=== PATIENT | male | born 1955 | race Caucasian/White ===

== ENCOUNTER 2016-09-13 19:30 | Emergency (ER) | payer OTHER ==
[2016-09-13 20:09] VITALS: BP 144/74; PULSE 62; TEMP 98.2; BMI 32.3
--- NOTE | 2016-09-13 22:26 | PDOC ---
History of Present Illness - History of Present Illness Initial Comments: 09/13/16 22:32 The patient is a 60 year old male presenting with her daughter, with a significant past medical history of HTN, Diabetes and HLD, who presents to the emergency department with right thigh pain for the past 4 days. He reports that the pain ranges from mild to moderate, without radiation. He notes that flexing his foot exacerbates the pain. He notes that he took 800 mg Ibuprofen which helped relieve his symptoms. He denies any kind of trauma. 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 He denies any other kind of pain. The patient denies chest pain, shortness of breath, headache and dizziness. Allergies: None Past surgical history: None reported Social history: No alcohol, tobacco or drug use reported <Bibi Loving - Last Filed: 09/13/16 22:32> <Isidoro Guzman - Last Filed: 09/14/16 01:25> - General Chief Complaint: Pain Stated Complaint: RT LEG PAIN Time Seen by Provider: 09/13/16 21:44 Past History <Bibi Loving - Last Filed: 09/13/16 22:32> - Past Medical History Diabetes: Yes HTN: Yes Hypercholesterolemia: Yes - Immunization History Immunization Up to Date: Yes - Psycho/Social/Smoking Cessation Hx Anxiety: No Suicidal Ideation: No Smoking Status: Yes Smoking History: Never smoked Have you smoked in the past 12 months: No Number of Cigarettes Smoked Daily: 0 Information on smoking cessation initiated: No Hx Alcohol Use: No Drug/Substance Use Hx: No Substance Use Type: None Hx Substance Use Treatment: No <Isidoro Guzman - Last Filed: 09/14/16 01:25> - Past Medical History Allergies/Adverse Reactions: Allergies Allergy/AdvReac Type Severity Reaction Status Date / Time No Known Allergies Allergy Verified 09/13/16 20:09 Home Medications: Ambulatory Orders Aspirin 81 mg PO DAILY #1 07/15/13 Atorvastatin Ca [Lipitor] 20 mg PO HS #1 07/15/13 Benzonatate [Tessalon] 200 mg PO TID #1 07/15/13 Lisinopril [Prinivil] 10 mg PO DAILY #1 07/15/13 Metformin HCl [Glucophage -] 500 mg PO BIDWM #60 tablet 07/15/13 Sitagliptin Phosphate [Januvia -] 100 mg PO DAILY@0700 #30 tab 07/15/13 Naproxen [Naprosyn] 500 mg PO BID PRN #20 tablet 10/01/13 Review of Systems - Review of Systems Comments:: 09/13/16 22:32 CONSTITUTIONAL: No fever, no chills, no fatigue EYES: No visual changes ENT: No ear pain, no sore throat CARDIOVASCULAR: No chest pain, no palpitations RESPIRATORY: No cough, no SOB GI: No abdominal pain, no nausea, no vomiting, no constipation, no diarrhea GENITOURINARY: No dysuria, no frequency, no hematuria MUSKULOSKELETAL: Right thigh pain. No backpain, no joint pain SKIN: No rash NEURO: No headache <Bibi Loving - Last Filed: 09/13/16 22:32> *Physical Exam - Vital Signs Last Vital Signs Temp Pulse Resp BP Pulse Ox 98.2 F 62 18 144/74 98 09/13/16 20:07 09/13/16 20:07 09/13/16 20:07 09/13/16 20:07 09/13/16 20:07 <Bibi Loving - Last Filed: 09/13/16 22:32> - Vital Signs Last Vital Signs Temp Pulse Resp BP Pulse Ox 98.2 F 62 18 144/74 98 09/13/16 20:07 09/13/16 20:07 09/13/16 20:07 09/13/16 20:07 09/13/16 20:07 - Physical Exam Comments: 09/13/16 22:22 EXAMINATION CONSTITUTIONAL: Well-appearing; well-nourished; in no apparent distress HEAD: Normocephalic; atraumatic EYES: PERRL; EOM intact ENMT: External appears normal; normal oropharynx NECK: Supple; non-tender; no cervical lymphadenopathy CARD: Normal S1, S2; no murmurs, rubs, or gallops RESP: Normal chest excursion with respiration; breath sounds clear and equal bilaterally; no wheezes, rhonchi, or rales ABD: Soft, non-distended; non-tender; no palpable organomegaly, no palpable hernias EXT: Normal ROM in all four extremities; non-tender to palpation; distal pulses intact; + pain to the mid quadricep on active flexion/extension of the knee joint; anterior/posterior drawers are negative; there is no laxity with valgus/ Dennison; Rhiannon's is negative; no pain with external/internal rotation of the femur at the hip joint; SKIN: Warm, dry, no rash NEURO: No focal neurological deficiencies. <Isidoro Guzman - Last Filed: 09/14/16 01:25> Medical Decision Making - Medical Decision Making 09/14/16 01:24 Patient is 60-year-old male who presents with intermittent right quadricep pain (not in the ER) which is reproduced by active extension/flexion of the knee joint against resistance. There is no evidence of hernias. Knee joint is stable without evidence of laxity. I suspect a quadricep injury. We'll advise continuous NSAID therapy with outpatient follow-up. <Isidoro Guzman - Last Filed: 09/14/16 01:25> *DC/Admit/Observation/Transfer - Attestations Scribe Attestion: 09/13/16 22:33 Documentation prepared by Bibi Loving, acting as medical delivery technician for Isidoro Guzman MD. <Bibi Loving - Last Filed: 09/13/16 22:32> <Isidoro Guzman - Last Filed: 09/14/16 01:25> Diagnosis at time of Disposition: Leg pain, right - Discharge Dispostion Disposition: HOME Condition at time of disposition: Stable - Referrals Referrals: Dennis Moya [Primary Care Provider] - - Patient Instructions Printed Discharge Instructions: DI for Leg Pain
== END 2016-09-13 22:40 | disposition home or self-care (01) ==
LOC: JER 19:30 → JERFT 19:30 → SUPCPDRO 19:30 → JER 22:40
DX: M79.604 Pain in right leg (principal); I10 Essential (primary) hypertension; E11.9 Type 2 diabetes mellitus without complications; E78.5 Hyperlipidemia, unspecified; Z79.82 Long term (current) use of aspirin
CPT/HCPCS: 99281-25

== ENCOUNTER 2019-06-22 16:32 | Emergency (ER) | payer OTHER ==
[2019-06-22 16:36] VITALS: BP 176/77; PULSE 64; TEMP 97.9; BMI 31.5
[2019-06-22] MEDS ORDERED: KETOROLAC TROMETHAMINE 30 MG/1 ML VIAL IM ONE (17:14)
[2019-06-22] MEDS ORDERED: KETOROLAC TROMETHAMINE 30 MG/1 ML VIAL ONE (17:17)
--- NOTE | 2019-06-22 17:19 | PDOC ---
History of Present Illness - General Chief Complaint: Pain Stated Complaint: HIP PAIN Time Seen by Provider: 06/22/19 16:56 History Source: Patient Exam Limitations: No Limitations - History of Present Illness Initial Comments: 06/22/19 17:14 CHIEF COMPLAINT: Atraumatic lower back pain HISTORY OF PRESENT ILLNESS: 63-year-old man, with 6/10 lower back pain radiating to bilateral lower extremities. Patient reports his pain is a sharp stabbing sensation. No neurosensory deficits, no bowel or bladder difficulty incontinence or urinary retention, no saddle anesthesia, no footdrop. No history of IVDU or hisotry of cancer. REVIEW OF SYSTEMS: GENERAL: Afebrile, denies any weakness RESPIRATORY: No cough, wheezing, or hemoptysis. CARDIAC: No chest pain or shortness of breath MUSCULOSKELETAL: Pain to generalized lower back. No point tenderness. Pain worse on right than left. SKIN : No erythema, no bruising, no deformity. GI/: Denies any abdominal pain, no urinary difficulty, incontinence or urinary retention. RECTAL: Denies any difficulty this A.m. NEUROLOGICAL: Denies any numbness or tingling. No neurosensory deficits. PHYSICAL EXAM: GENERAL: The patient is awake, alert, and fully oriented, in no acute distress. RESPIRATORY: Lungs clear bilaterally, no rhonchi wheezes or crackles CARDIAC: S1-S2 audible, no murmur rub or gallop MUSCULOSKELETAL: Pain to generalized lower back, nonradiating, no tingling or sensory deficit. Less than 2 second cap refill, +2 pedal pulses. No spinal point tenderness. Normal reflexive and no deficits to sensation or strength. Able to perform straight leg raises without difficulty. Palpable muscle spasm present in the right lumbar paraspinous muscles. GI/: Abdomen soft, nontender, nondistended. No rebound tenderness. No masses palpable. RECTAL: Deferred patient with no neurological findings SKIN: Warm, Dry, normal turgor, no erythema, no edema no bruising. Past History - Past Medical History Allergies/Adverse Reactions: Allergies Allergy/AdvReac Type Severity Reaction Status Date / Time No Known Allergies Allergy Verified 06/22/19 16:36 Home Medications: Ambulatory Orders Acetaminophen [Acetaminophen ER] 650 mg PO BID 06/22/19 Amox-Tr/K Cl [Augmentin - 875Mg Tablet] 1 tab PO BID 06/22/19 Diazepam [Valium] 5 mg PO ONCE PRN #1 tablet MDD 1 06/22/19 Losartan/Hydrochlorothiazide [Losartan-Hctz 50-12.5 mg Tab] 1 each PO DAILY Methocarbamol [Robaxin -] 1,500 mg PO Q8H PRN #30 tablet 06/22/19 Sitagliptin Phosphate [Januvia -] 100 mg PO DAILY@0700 06/22/19 metFORMIN HCL [Glucophage -] 500 mg PO BID 06/22/19 COPD: No Diabetes: Yes HTN: Yes Hypercholesterolemia: Yes - Immunization History Immunization Up to Date: Yes - Psycho Social/Smoking Cessation Hx Smoking Status: Yes Smoking History: Never smoked Have you smoked in the past 12 months: No Number of Cigarettes Smoked Daily: 0 Hx Alcohol Use: No Drug/Substance Use Hx: No Substance Use Type: None Hx Substance Use Treatment: No Trauma Specific PMHX - Complaint Specific PMHX Arthritis: No *Physical Exam - Vital Signs Last Vital Signs Temp Pulse Resp BP Pulse Ox 97.9 F 64 18 176/77 H 99 06/22/19 16:34 06/22/19 16:34 06/22/19 16:34 06/22/19 16:34 06/22/19 16:34 Medical Decision Making - Medical Decision Making 06/22/19 17:16 A/P: 63-year-old male with muscle spasms in the right paraspinous lumbar region. Toradol 30 mg IM now Patient reports he is driving home today and I will give a prescription for Valium 1 dose to be taken at home as well as prescription for Robaxin to be taken for ongoing pain. Patient has been encouraged to follow-up with his primary doctor for continued evaluation if symptoms do not resolve within the next 7 days. Discharge - Discharge Information Problems reviewed: Yes Clinical Impression/Diagnosis: Spasm of muscle of lower back Condition: Stable Disposition: HOME - Admission No - Additional Discharge Information Prescriptions: Diazepam [Valium] 5 mg PO ONCE PRN #1 tablet MDD 1 PRN Reason: Back Pain Methocarbamol [Robaxin -] 1,500 mg PO Q8H PRN #30 tablet PRN Reason: Back Pain - Follow up/Referral - Patient Discharge Instructions Additional Instructions: Rest, no heavy lifting or exercise until pain is resolved Hot soaks to neck and low back as often as possible/hot showers or Jacuzzis No massage or therapy until spasm is gone Continue naproxen 2-220 mg tablets every 12 hours for the next 3 days then as needed for pain and swelling Robaxin 1500mg every 8 hours as needed for spasm If not significant improvement within 24 hours with medication and rest regime, followup with private physician for change in medications and /or therapy. - Post Discharge Activity Work/Back to School Note: Back to Work
== END 2019-06-22 17:53 | disposition home or self-care (01) ==
LOC: JERFT 16:32
PROC: 3E0233Z Introduction of Anti-inflammatory into Muscle, Percutaneous Approach (ICD-10-PCS; principal; 2019-06-22)
DX: M62.830 Muscle spasm of back (principal); I10 Essential (primary) hypertension; E78.00 Pure hypercholesterolemia, unspecified; E11.9 Type 2 diabetes mellitus without complications; Z79.84 Long term (current) use of oral hypoglycemic drugs
CPT/HCPCS: 96372; 99281-25

== ENCOUNTER 2019-06-26 19:27 | Emergency (ER) | payer OTHER ==
[2019-06-26] MEDS ORDERED: LIDOCAINE 5% TOPICAL PATCH TP ONE (20:36)
[2019-06-26] MEDS ORDERED: KETOROLAC TROMETHAMINE 30 MG/1 ML VIAL IM ONE (20:37)
[2019-06-26] MEDS ORDERED: ACETAMINOPHEN 325 MG TABLET (FP) PO ONE (20:37)
--- NOTE | 2019-06-26 20:37 | PDOC ---
History of Present Illness - General Chief Complaint: Pain, Acute Stated Complaint: LEG PAIN Time Seen by Provider: 06/26/19 19:47 History Source: Patient, Family ( and other family members present at bedside.), Old Records, Pt declined Specialist Managers (Pt used a family member for Persian Interpretation) Exam Limitations: Language Barrier - History of Present Illness Initial Comments: HPI: 63 y/o male presenting to [facility] ER complaining of pain to his left leg that started after waking from a nap this afternoon. Pain radiates throughout the posterior aspect of the leg and into his lower back. Pt works as a route sales delivery driver, and reportedly drive for approx. 6 hours prior to the start of this pain. Denies trauma to the area, fevers, chills, rash, or point tenderness in the leg. Denies saddle anesthesia, urinary retention, or fecal incontinence. Tried OTC Tylenol this afternoon without resolution of the symptoms. Of note, the pt was seen in this department on 22 Jun 2019 for similar symptoms. Was prescribed Robaxin. Medical Hx: - HTN - HLD - Diabetes Review of Systems: In addition to that documented in the HPI above, the additional ROS was obtained : Constitutional- Denies fevers or chills ENMT- Denies sore throat CV- Denies chest pain Resp- Denies SOB GI- Denies abdominal pain, vomiting or diarrhea Neuro- Per HPI Physical Examination: Vital signs and nursing notes reviewed. Constitutional- Well-developed, well-nourished adult male in no acute distress but obvious discomfort. Found semi-fowlers on hospital bed. Head- Normocephalic. No obvious external signs of trauma. Cardiovascular / Chest- Regular rate and regular rhythm. No murmur, rubs, clicks , or gallops. Peripheral pulses- radial pulses full. Left DPL 2+. Respiratory- Breathing unlabored. Equal chest rise and fall. Clear to auscultation bilaterally. No stridor, no wheezing, no rhonchi. Gastrointestinal- abdomen is soft, non-tender, non-distended. Neuro- Alert and oriented x4. Moving all four extremities spontaneously. Sensation intact and symmetrical to both lower extremities. No saddle anesthesia. Lower extremities: proximal and distal strength 5/5. Plantar flexion and dorsiflexion 5/5. Intact rectal tone present on digital exam. MSK/ Skin- Diffuse tenderness to posterior aspect of left lower leg, which is made worse with a straight leg raise. No point tenderness, redness, or other localized skin lesions. Left lower extremity is warm and well perfused. Diffuse tenderness to bilateral aspects of lower back. No midline tenderness. No step off or other obvious bony deformity. Psych- Affect- appropriate. Mood- normal. Speech was non-labored, non- pressured. MDM: 63 y/o male presenting with acute exacerbation of chronic lower back pain w/ radiation to posterior aspect of left leg. Afebrile. Vitals unremarkable for hypotension or tachycardia. Physical exam as described above. Low suspicion for Cauda Equina versus epidural abscess. Suspect MSK pain vs strain with sciatica. Likely secondary to occupation. Will trial Toradol, Tylenol, and Lidoderm patch. 26 Jun 2019 22:04 PM Pt reassessed. Found standing up beside the hospital bed. States his pain has resolved and he would like to go home. Discussed physical exam findings with pt. Answered all questions. Provided return precautions. pt expressed verbal understanding and agreement with plan to discharge home with outpatient follow up. Encouraged pt to try over the counter Lidoderm patches and discuss prescription with his primary care doctor. Tima Granados M.D., PGY2 Emergency Medicine Resident Past History - Past Medical History Allergies/Adverse Reactions: Allergies Allergy/AdvReac Type Severity Reaction Status Date / Time No Known Allergies Allergy Verified 06/22/19 16:36 Home Medications: Ambulatory Orders Acetaminophen [Acetaminophen ER] 650 mg PO BID 06/22/19 Amox-Tr/K Cl [Augmentin - 875Mg Tablet] 1 tab PO BID 06/22/19 Diazepam [Valium] 5 mg PO ONCE PRN #1 tablet MDD 1 06/22/19 Losartan/Hydrochlorothiazide [Losartan-Hctz 50-12.5 mg Tab] 1 each PO DAILY Methocarbamol [Robaxin -] 1,500 mg PO Q8H PRN #30 tablet 06/22/19 Sitagliptin Phosphate [Januvia -] 100 mg PO DAILY@0700 06/22/19 metFORMIN HCL [Glucophage -] 500 mg PO BID 06/22/19 COPD: No Diabetes: Yes HTN: Yes Hypercholesterolemia: Yes - Immunization History Immunization Up to Date: Yes - Psycho Social/Smoking Cessation Hx Smoking Status: Yes Smoking History: Never smoked Have you smoked in the past 12 months: No Number of Cigarettes Smoked Daily: 0 Hx Alcohol Use: No Drug/Substance Use Hx: No Substance Use Type: None Hx Substance Use Treatment: No Discharge - Discharge Information Problems reviewed: Yes Clinical Impression/Diagnosis: Lower back pain Qualifiers: Chronicity: acute Back pain laterality: bilateral Sciatica presence: with sciatica Sciatica laterality: sciatica of left side Qualified Code(s): M54.42 - Lumbago with sciatica, left side Condition: Improved Disposition: HOME - Admission No - Follow up/Referral Referrals: Dennis Moya [Primary Care Provider] - - Patient Discharge Instructions Patient Printed Discharge Instructions: DI for Back Pain With Sciatica Additional Instructions: Hoy lo vieron por un dolor en la parte baja de la espalda que se movi hacia la pierna izquierda. Probablemente se trata de algo llamado dolor del nervio citico. Puede ser causado por estar sentado en garcia taxi naheed largas horas. Puede marcin el contador Tylenol o Advil segn sea necesario para el dolor. Tmelo jesika se indica en el prospecto. No exceda la dosis recomendada. Cliff un seguimiento con garcia mdico de atencin primaria en los prximos 3-4 lopez. Deber llamar para hacer geovanni tashi. Dirjase al departamento de emergencias ms cercano si garcia afeccin empeora o siente que necesita geovanni evaluacin de emergencia adicional. Est atento al empeoramiento del dolor de espalda en la lnea media, problemas para orinar, problemas para controlar jayna evacuaciones intestinales o fiebre. Estos pueden ser signos de geovanni infeccin ms grave. You were seen today for lower back pain that moved into your left leg. This was likely something called Sciatic nerve pain. 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 You can take over the counter Tylenol or Advil as needed for pain. Take as directed on the package insert. Do not exceed the recommended dosage. Follow up with your primary care doctor in the next 3-4 days. You will need to call to make an appointment. Go to the nearest emergency department if your condition worsens or you feel like you need additional emergency evaluation. Watch for worsening midline back pain, trouble peeing, trouble controlling your bowel movements, or fever. These may be signs of a more serious infection. Print Language: KAZAKH - Post Discharge Activity
[2019-06-26 20:46] VITALS: BP 166/84; PULSE 88; TEMP 98.4; BMI 31.6
--- NOTE | 2019-06-26 21:09 | PDOC ---
Attending Attestation - Resident Resident Name: Tima Granados - ED Attending Attestation I have performed the following: I have examined & evaluated the patient, The case was reviewed & discussed with the resident, I agree w/resident's findings & plan, Exceptions are as noted - HPI HPI: 06/26/19 22:19 See resident HPI - Physicial Exam PE: 06/26/19 22:19 Agree with resident exam - Medical Decision Making 06/26/19 22:19 P/w with likely sciatica pain, imaging not indicated analgesia, re-eval symptomatically improved dc home
[2019-06-26] MEDS ORDERED: LIDOCAINE PATCH REMOVAL MC SCH (22:00)
== END 2019-06-26 22:25 | disposition home or self-care (01) ==
LOC: JER 19:27
PROC: 3E0233Z Introduction of Anti-inflammatory into Muscle, Percutaneous Approach (ICD-10-PCS; principal; 2019-06-26)
DX: M54.42 Lumbago with sciatica, left side (principal); I10 Essential (primary) hypertension; E78.00 Pure hypercholesterolemia, unspecified; E11.9 Type 2 diabetes mellitus without complications; Z79.84 Long term (current) use of oral hypoglycemic drugs
CPT/HCPCS: 99282-25

== ENCOUNTER 2022-10-16 09:47 | Observation (INO) | payer MEDICARE, OTHER ==
[2022-10-16 10:01] VITALS: BMI 31.8
[2022-10-16] MEDS ORDERED: dilTIAZem HCL 50 MG/10 ML - 10 ML VIAL IVPUSH ONE (10:28)
[2022-10-16] MEDS ORDERED: dilTIAZem HCL 125 MG/25 ML - 25 ML VIAL ONE (10:36)
[2022-10-16 11:03] LABS: BASO % 1.1 % (0-2.0); EOS % 0.3 % (0-4.5); HEMATOCRIT 39.2 % (35.4-49); HEMOGLOBIN 12.9 GM/dL (11.7-16.9); LYMPH % 20.4 % (8-40); MCH 25.5 pg (25.7-33.7); MCHC 32.9 g/dl (32.0-35.9); MEAN CELL VOLUME 77.5 fl (80-96); MEAN PLT VOLUME 10.5 fl (7.5-11.1); MONO % 7.6 % (3.8-10.2); NEUT % 70.6 % (42.8-82.8); PLATELET COUNT 213 10^3/uL (134-434); RBC 5.05 M/mm3 (4.00-5.60); RDW 18.2 % (11.9-15.9); WHITE BLOOD COUNT 10.6 K/mm3 (4.0-10.0)
[2022-10-16 11:11] LABS: INR 2.08 (0.83-1.09); PROTHROMBIN TIME (PATIENT) 23.9 SEC (9.7-13.0)
[2022-10-16 11:18] LABS: POTASSIUM 4.2 mmol/L (3.5-5.1)
[2022-10-16 11:20] LABS: CALCIUM 9.3 mg/dL (8.5-10.1)
[2022-10-16 11:21] LABS: ALBUMIN 3.7 g/dl (3.4-5.0)
[2022-10-16 11:25] LABS: BILIRUBIN,TOTAL 1.8 mg/dL (0.2-1); CREATININE 1.3 mg/dL (0.55-1.3); TOT PROT 7.5 g/dl (6.4-8.2)
[2022-10-16] MEDS ORDERED: diazePAM 5 MG TABLET PO PRN (14:46)
[2022-10-16] MEDS ORDERED: ACETAMINOPHEN 325 MG TABLET (FP) PO PRN (14:46)
[2022-10-16] MEDS: INSULIN SLIDING SCALE (NOVOLOG) 1 VIAL SQ SCH ×2 (18:47→21:37)
[2022-10-16] MEDS ORDERED: FUROSEMIDE 40 MG/4 ML INJECTABLE VIAL IVPUSH SCH (20:30)
[2022-10-16] MEDS: FUROSEMIDE 40 MG/4 ML INJECTABLE VIAL IVPUSH SCH (21:46)
[2022-10-17] MEDS: INSULIN SLIDING SCALE (NOVOLOG) 1 VIAL SQ SCH ×4 (06:02→21:21)
[2022-10-17] MEDS: FUROSEMIDE 40 MG/4 ML INJECTABLE VIAL IVPUSH SCH (09:20)
[2022-10-17] MEDS: APIXABAN 5 MG TABLET PO SCH ×2 (09:20→21:18)
[2022-10-17] MEDS: METOPROLOL TARTRATE 25 MG TABLET (FP) PO SCH ×2 (09:20→21:18)
[2022-10-17] MEDS ORDERED: LOSARTAN 50MG/HCTZ 12.5MG 1 TAB PO SCH (10:00)
[2022-10-17 11:43] LABS: INR 2.25 (0.83-1.09); PROTHROMBIN TIME (PATIENT) 25.9 SEC (9.7-13.0)
[2022-10-17 11:54] LABS: BASO % 1.1 % (0-2.0); EOS % 1.2 % (0-4.5); HEMATOCRIT 39.2 % (35.4-49); HEMOGLOBIN 13.1 GM/dL (11.7-16.9); LYMPH % 19.5 % (8-40); MCH 25.8 pg (25.7-33.7); MCHC 33.3 g/dl (32.0-35.9); MEAN CELL VOLUME 77.6 fl (80-96); MEAN PLT VOLUME 9.7 fl (7.5-11.1); MONO % 8.2 % (3.8-10.2); PLATELET COUNT 223 10^3/uL (134-434); RBC 5.05 M/mm3 (4.00-5.60); RDW 18.4 % (11.9-15.9); WHITE BLOOD COUNT 9.8 K/mm3 (4.0-10.0)
[2022-10-17 11:58] LABS: POTASSIUM 3.8 mmol/L (3.5-5.1)
[2022-10-17 12:01] LABS: CALCIUM 9.2 mg/dL (8.5-10.1)
[2022-10-17 12:02] LABS: ALBUMIN 3.6 g/dl (3.4-5.0); BLOOD UREA NITROGEN 25.7 mg/dL (7-18)
[2022-10-17 12:05] LABS: CREATININE 1.2 mg/dL (0.55-1.3)
[2022-10-17 12:06] LABS: BILIRUBIN,TOTAL 1.7 mg/dL (0.2-1); TOT PROT 7.7 g/dl (6.4-8.2)
[2022-10-18] MEDS: INSULIN SLIDING SCALE (NOVOLOG) 1 VIAL SQ SCH ×4 (06:11→22:49)
[2022-10-18] MEDS: APIXABAN 5 MG TABLET PO SCH ×2 (12:52→22:48)
[2022-10-18] MEDS: FUROSEMIDE 40 MG/4 ML INJECTABLE VIAL IVPUSH SCH (12:52)
[2022-10-18] MEDS: METOPROLOL TARTRATE 50 MG TABLET (FP) PO SCH ×2 (12:52→22:48)
[2022-10-19] MEDS: INSULIN SLIDING SCALE (NOVOLOG) 1 VIAL SQ SCH ×2 (06:26→11:30)
[2022-10-19 08:08] LABS: POTASSIUM 3.9 mmol/L (3.5-5.1)
[2022-10-19 08:25] LABS: BLOOD UREA NITROGEN 22.9 mg/dL (7-18); CALCIUM 8.7 mg/dL (8.5-10.1)
[2022-10-19 08:28] LABS: CREATININE 0.9 mg/dL (0.55-1.3)
[2022-10-19 08:30] LABS: TOT PROT 6.6 g/dl (6.4-8.2)
[2022-10-19] MEDS ORDERED: DIGOXIN 0.25 MG TABLET PO ONE (08:46)
[2022-10-19] MEDS ORDERED: REGADENOSON 0.4 MG/5 ML PRE-FILLED SYRINGE IVPUSH ONE ×2 (09:28→09:45)
[2022-10-19] MEDS: METOPROLOL TARTRATE 50 MG TABLET (FP) PO SCH (13:18)
[2022-10-19] MEDS: APIXABAN 5 MG TABLET PO SCH (13:18)
[2022-10-19 16:02] VITALS: BP 128/70; PULSE 117; RESP 20; TEMP 98.1
[2022-10-20] MEDS ORDERED: DIGOXIN 0.125 MG TABLET PO SCH (10:00)
== END 2022-10-19 18:12 | disposition home or self-care (01) ==
LOC: JER 09:47 → JERBED 13:47 → INTOOBSV 13:47 → UNDOADMOB 13:47 → JERBED 18:21 → J4W 18:21 → JERBED 10-18 15:00
PROVIDERS: ADMIT Family Medicine; ATTEND Family Medicine
PROC: 3E033GC Introduction of Other Therapeutic Substance into Peripheral Vein, Percutaneous Approach (ICD-10-PCS; principal; 2022-10-18)
DX: I25.10 Atherosclerotic heart disease of native coronary artery without angina pectoris (principal); I11.0 Hypertensive heart disease with heart failure; E11.9 Type 2 diabetes mellitus without complications; E78.5 Hyperlipidemia, unspecified; E66.8 Other obesity; I48.91 Unspecified atrial fibrillation; Z68.30 Body mass index [BMI] 30.0-30.9, adult; R05.9 Cough, unspecified; R06.02 Shortness of breath; Z87.891 Personal history of nicotine dependence; R79.89 Other specified abnormal findings of blood chemistry; R77.8 Other specified abnormalities of plasma proteins
CPT/HCPCS: 36415; 71045-TC-FY; 76705-TC; 78452-TC; 80053; 80061; 82248; 82550; 82728; 82962; 83036; 83540; 83550; 83880; 84443; 84484; 85025; 85610; 86704; 86708; 86709; 86803; 86850; 86900; 86901; 87340; 87517; 93005; 93010; 93017; 93306-TC; 96374; 96375; 99291; A9502; C9803-CS; G0378; J2785; U0003; U0005

== ENCOUNTER 2023-07-16 14:18 | Inpatient (IN) | payer MEDICARE, OTHER ==
[2023-07-16 15:52] LABS: MCH 22.2 pg (25.7-33.7); MCHC 30.7 g/dl (32.0-35.9); MEAN CELL VOLUME 72.5 fl (80-96); MEAN PLT VOLUME 8.7 fl (7.5-11.1); PLATELET COUNT 290 10^3/uL (134-434); RBC 2.48 M/mm3 (4.00-5.60); RDW 18.1 % (11.9-15.9)
[2023-07-16 15:54] LABS: HEMOGLOBIN 5.5 GM/dL (11.7-16.9)
[2023-07-16] MEDS ORDERED: PANTOPRAZOLE SODIUM 40 MG VIAL IVPUSH ONE (15:56)
[2023-07-16] MEDS ORDERED: PANTOPRAZOLE SODIUM 40 MG VIAL ONE (16:06)
[2023-07-16 16:08] LABS: INR 3.38 (0.83-1.09); PROTHROMBIN TIME (PATIENT) 38.7 SEC (9.7-13.0)
[2023-07-16 16:11] LABS: CALCIUM 8.8 mg/dL (8.5-10.1)
[2023-07-16 16:12] LABS: ALBUMIN 3.4 g/dl (3.4-5.0); BLOOD UREA NITROGEN 22.4 mg/dL (7-18)
[2023-07-16 16:15] LABS: CREATININE 1.6 mg/dL (0.55-1.3); PHOSPHOROUS 3.7 mg/dL (2.5-4.9)
[2023-07-16 16:16] LABS: BILIRUBIN,TOTAL 0.4 mg/dL (0.2-1); TOT PROT 7.1 g/dl (6.4-8.2)
[2023-07-16 20:03] LABS: N-TERMINAL BNP 3277.4 pg/ml (5-125)
[2023-07-16] MEDS ORDERED: ACETAMINOPHEN 1000 MG/100 ML BAG IVPB PRN (21:55)
[2023-07-16] MEDS ORDERED: METOPROLOL TARTRATE 5 MG/5 ML VIAL IVPUSH ONE (22:33)
[2023-07-16] MEDS ORDERED: METOPROLOL TARTRATE 5 MG/5 ML VIAL ONE (22:33)
[2023-07-17] MEDS ORDERED: METOPROLOL TARTRATE 50 MG TABLET (FP) ONE (01:52)
[2023-07-17] MEDS ORDERED: METOPROLOL TARTRATE 50 MG TABLET (FP) PO ONE (01:58)
[2023-07-17 04:20] VITALS: BMI 32.5
[2023-07-17 07:51] LABS: BASO % 0.4 % (0-2.0); EOS % 0.3 % (0-4.5); HEMATOCRIT 24.5 % (35.4-49); HEMOGLOBIN 7.8 GM/dL (11.7-16.9); LYMPH % 11.3 % (8-40); MCHC 31.9 g/dl (32.0-35.9); MEAN CELL VOLUME 75.2 fl (80-96); MEAN PLT VOLUME 9.4 fl (7.5-11.1); MONO % 5.4 % (3.8-10.2); NEUT % 82.6 % (42.8-82.8); PLATELET COUNT 232 10^3/uL (134-434); RBC 3.25 M/mm3 (4.00-5.60); RDW 18.2 % (11.9-15.9); WHITE BLOOD COUNT 11.9 K/mm3 (4.0-10.0)
[2023-07-17 08:10] LABS: POTASSIUM 4.4 mmol/L (3.5-5.1)
[2023-07-17 08:30] LABS: BLOOD UREA NITROGEN 21.1 mg/dL (7-18)
[2023-07-17 08:34] LABS: CREATININE 1.5 mg/dL (0.55-1.3)
[2023-07-17] MEDS ORDERED: DEXTROSE 5%-0.45% SALINE 1,000 ML IV SCH (09:15)
[2023-07-17] MEDS: DIGOXIN 0.125 MG TABLET PO SCH ×2 (10:06→11:21)
[2023-07-17] MEDS: PANTOPRAZOLE SODIUM 40 MG VIAL IVPUSH SCH ×2 (10:06→21:51)
[2023-07-17] MEDS: INSULIN ASPART SLIDING SCALE (NOVOLOG) 1 VIAL SQ SCH ×3 (13:43→21:54)
[2023-07-17 13:56] LABS: BASO % 0.6 % (0-2.0); EOS % 0.4 % (0-4.5); HEMATOCRIT 22.5 % (35.4-49); HEMOGLOBIN 7.4 GM/dL (11.7-16.9); LYMPH % 14.7 % (8-40); MCH 24.6 pg (25.7-33.7); MEAN CELL VOLUME 74.7 fl (80-96); MEAN PLT VOLUME 9.5 fl (7.5-11.1); MONO % 7.7 % (3.8-10.2); NEUT % 76.6 % (42.8-82.8); PLATELET COUNT 224 10^3/uL (134-434); RBC 3.01 M/mm3 (4.00-5.60); RDW 18.1 % (11.9-15.9); WHITE BLOOD COUNT 10.6 K/mm3 (4.0-10.0)
[2023-07-17] MEDS: METOPROLOL TARTRATE 25 MG TABLET (FP) PO SCH ×2 (18:03→21:51)
[2023-07-17] MEDS ORDERED: ACETAMINOPHEN 325 MG TABLET (FP) PO PRN (21:50)
[2023-07-18] MEDS ORDERED: INSULIN (NOVOLOG) ASPART 100 UNITS/ML 10ML VIAL ONE (05:56)
[2023-07-18] MEDS: INSULIN ASPART SLIDING SCALE (NOVOLOG) 1 VIAL SQ SCH ×3 (06:08→11:42)
[2023-07-18 08:11] LABS: BASO % 0.8 % (0-2.0); EOS % 0.8 % (0-4.5); HEMATOCRIT 25.2 % (35.4-49); HEMOGLOBIN 8.3 GM/dL (11.7-16.9); LYMPH % 18.5 % (8-40); MCH 25.2 pg (25.7-33.7); MEAN CELL VOLUME 76.3 fl (80-96); MEAN PLT VOLUME 9.4 fl (7.5-11.1); MONO % 8.2 % (3.8-10.2); NEUT % 71.7 % (42.8-82.8); PLATELET COUNT 201 10^3/uL (134-434); RDW 19.7 % (11.9-15.9); WHITE BLOOD COUNT 9.3 K/mm3 (4.0-10.0)
[2023-07-18 08:34] LABS: POTASSIUM 3.7 mmol/L (3.5-5.1)
[2023-07-18 08:37] LABS: BLOOD UREA NITROGEN 21.4 mg/dL (7-18); CALCIUM 7.8 mg/dL (8.5-10.1)
[2023-07-18 08:42] LABS: BILIRUBIN,TOTAL 1.4 mg/dL (0.2-1); CREATININE 1.4 mg/dL (0.55-1.3); TOT PROT 5.7 g/dl (6.4-8.2)
[2023-07-18 08:43] LABS: ALBUMIN 2.7 g/dl (3.4-5.0)
[2023-07-18] MEDS: METOPROLOL TARTRATE 25 MG TABLET (FP) PO SCH (10:12)
[2023-07-18] MEDS: PANTOPRAZOLE SODIUM 40 MG VIAL IVPUSH SCH (10:12)
[2023-07-18] MEDS ORDERED: IRON SUCROSE INJECTION 200 MG in SODIUM CHLORIDE 90 ML IVPB ONE (13:00)
[2023-07-18 13:45] VITALS: BP 124/95; PULSE 105; RESP 20; TEMP 98.9
== END 2023-07-18 16:46 | disposition home or self-care (01) | DRG 812 ==
LOC: JER 14:18 → JERBED 16:45 → J4W 07-17 04:04
PROVIDERS: ADMIT Internal Medicine; ATTEND Family Medicine
PROC: 30233N1 Transfusion of Nonautologous Red Blood Cells into Peripheral Vein, Percutaneous Approach (ICD-10-PCS; principal; 2023-07-16)
DX: D62 Acute posthemorrhagic anemia (principal); K62.5 Hemorrhage of anus and rectum; E11.65 Type 2 diabetes mellitus with hyperglycemia; I11.0 Hypertensive heart disease with heart failure; I50.9 Heart failure, unspecified; E78.5 Hyperlipidemia, unspecified; R06.02 Shortness of breath; E66.9 Obesity, unspecified; Z68.32 Body mass index [BMI] 32.0-32.9, adult
CPT/HCPCS: 36415; 36430; 71045-TC-FY; 80048; 80053; 80162; 82272; 82728; 82962; 83540; 83550; 83735; 83880; 84100; 84484; 85025; 85027; 85610; 85730; 86850; 86900; 86901; 86922; 93005; 93010; 93306-TC; 99285-25; J1756; P9058